=== PATIENT | male | born 1960 | race Caucasian/White ===

== ENCOUNTER 2018-03-09 10:59 | Inpatient (IN) | payer BC ==
[~2018-03-09] VITALS: Ht 170.2 cm; Wt 62.6 kg
[2018-03-09 11:43] VITALS: Ht 170.2 cm; Wt 62.6 kg
[2018-03-09 12:50] LABS: PLATELET COUNT 206 x10^3mcL (130-400)
[2018-03-09 12:53] LABS: UA SPECIFIC GRAVITY <=1.005 (1.005-1.035); microscopic required? YES; urine erythrocyte 2+ (NEGATIVE)
[2018-03-09 13:04] LABS: BILIRUBIN TOTAL 0.48 mg/dL (0.20-1.00); CALCIUM 9.1 mg/dL (8.5-10.1); CARBON DIOXIDE 18.1 mmol/L (21-32)
[2018-03-09 13:07] LABS: ALBUMIN 2.9 g/dL (3.4-5.0); TOTAL PROTEIN, SERUM 9.5 g/dL (6.4-8.2)
[2018-03-09 13:08] LABS: CREATININE SERUM 4.7 mg/dL (0.7-1.3)
[2018-03-09 14:32] LABS: BAND NEUTROPHIL 18 % (0-10); BASOPHIL 0 % (0-2); MONOCYTE 6 % (0-7); SEGMENTED NEUTROPHILS 73 % (37-75)
[2018-03-09 14:33] LABS: PLATELET MORPHOLOGY PLATELETS NORMAL; rbc morphology (normal/abnorm) ABNORMAL (NORMAL); tear drop cell (dacryocyte) 1+
[2018-03-09 15:26] LABS: FREE T4 1.01 ng/dL (0.76-1.46); FREE THYROXINE INDEX 1.9 ug/dL (1.4-4.5)
[2018-03-09 15:30] LABS: T3 TOTAL 0.26 ng/mL
[2018-03-09 15:47] VITALS: BP 138/89
[2018-03-09 16:44] LABS: CALCIUM 7.9 mg/dL (8.5-10.1); CARBON DIOXIDE 14.5 mmol/L (21-32); MAGNESIUM 2.3 mg/dL (1.8-2.4); PHOSPHOROUS 6.2 mg/dL (2.5-4.9); POTASSIUM SERUM 3.9 mmol/L (3.5-5.1)
[2018-03-09 16:48] LABS: CREATININE SERUM 4.5 mg/dL (0.7-1.3)
[2018-03-09 19:23] VITALS: BP 138/80
[2018-03-09 20:29] LABS: CALCIUM 8.1 mg/dL (8.5-10.1); CARBON DIOXIDE 17.8 mmol/L (21-32); CREATININE SERUM 3.7 mg/dL (0.7-1.3); MAGNESIUM 2.2 mg/dL (1.8-2.4); PHOSPHOROUS 4.7 mg/dL (2.5-4.9); POTASSIUM SERUM 4.1 mmol/L (3.5-5.1)
[2018-03-10] VITALS (12 sets, daily range): BP systolic 114–137; BP diastolic 67–84
[2018-03-10 00:57] LABS: CALCIUM 8.3 mg/dL (8.5-10.1); CARBON DIOXIDE 18.1 mmol/L (21-32); CREATININE SERUM 3.6 mg/dL (0.7-1.3); MAGNESIUM 2.2 mg/dL (1.8-2.4); PHOSPHOROUS 4.5 mg/dL (2.5-4.9); POTASSIUM SERUM 4.2 mmol/L (3.5-5.1)
[2018-03-10 05:43] LABS: PLATELET COUNT 196 x10^3mcL (130-400); RED CELL DISTRIBUTION WIDTH 14.3 % (11.5-14.5)
[2018-03-10 06:00] LABS: CALCIUM 7.5 mg/dL (8.5-10.1); CARBON DIOXIDE 15.3 mmol/L (21-32); CREATININE SERUM 3.4 mg/dL (0.7-1.3); MAGNESIUM 1.9 mg/dL (1.8-2.4); PHOSPHOROUS 3.6 mg/dL (2.5-4.9); POTASSIUM SERUM 3.4 mmol/L (3.5-5.1)
[2018-03-10 06:26] LABS: ATYPICAL LYMPH 1 %; BAND NEUTROPHIL 2 % (0-10); MONOCYTE 4 % (0-7); SEGMENTED NEUTROPHILS 85 % (37-75)
[2018-03-10 06:32] LABS: PLATELET MORPHOLOGY LARGE PLATELET SEEN; rbc morphology (normal/abnorm) NORMAL (NORMAL)
[2018-03-11 04:44] VITALS: BP 135/87
[2018-03-11 06:56] LABS: PLATELET COUNT 203 x10^3mcL (130-400); RED CELL DISTRIBUTION WIDTH 14.3 % (11.5-14.5)
[2018-03-11 07:10] LABS: BILIRUBIN TOTAL 0.36 mg/dL (0.20-1.00); CALCIUM 8.2 mg/dL (8.5-10.1); CARBON DIOXIDE 19.5 mmol/L (21-32); MAGNESIUM 1.8 mg/dL (1.8-2.4); PHOSPHOROUS 3.4 mg/dL (2.5-4.9); POTASSIUM SERUM 4.2 mmol/L (3.5-5.1); TOTAL PROTEIN, SERUM 6.8 g/dL (6.4-8.2)
[2018-03-11 07:13] LABS: ALBUMIN 1.7 g/dL (3.4-5.0)
[2018-03-11 09:56] VITALS: BP 117/77
[2018-03-11 12:40] LABS: BAND NEUTROPHIL 21 % (0-10); MONOCYTE 5 % (0-7); SEGMENTED NEUTROPHILS 66 % (37-75); rbc morphology (normal/abnorm) NORMAL (NORMAL)
[2018-03-11 12:41] LABS: PLATELET MORPHOLOGY PLATELETS NORMAL
[2018-03-11 16:28] VITALS: BP 123/78
[2018-03-11 21:01] VITALS: BP 115/76
[2018-03-12 05:56] VITALS: BP 129/81
[2018-03-12 06:52] LABS: CALCIUM 7.9 mg/dL (8.5-10.1); CARBON DIOXIDE 21.1 mmol/L (21-32); CREATININE SERUM 2.8 mg/dL (0.7-1.3); POTASSIUM SERUM 3.6 mmol/L (3.5-5.1)
[2018-03-12 08:34] LABS: BASOPHIL % 0.1 % (0-2); PLATELET COUNT 239 x10^3mcL (130-400)
[2018-03-12 08:47] LABS: RED CELL DISTRIBUTION WIDTH 14.8 % (11.5-14.5)
[2018-03-12 10:05] VITALS: BP 114/70
[2018-03-12 16:05] LABS: calcium (part of PTHIC) 8.1 mg/dL (8.7-10.2)
[2018-03-12 16:48] VITALS: BP 124/78
[2018-03-12 20:00] VITALS: BP 126/79
[2018-03-13 05:38] VITALS: BP 116/75
[2018-03-13 06:14] LABS: PLATELET COUNT 303 x10^3mcL (130-400)
[2018-03-13 06:26] LABS: CALCIUM 7.7 mg/dL (8.5-10.1); CARBON DIOXIDE 19.4 mmol/L (21-32); CREATININE SERUM 2.7 mg/dL (0.7-1.3)
[2018-03-13 06:31] LABS: POTASSIUM SERUM 2.6 mmol/L (3.5-5.1)
[2018-03-13 06:47] LABS: RED CELL DISTRIBUTION WIDTH 14.9 % (11.5-14.5)
[2018-03-13 08:55] LABS: BAND NEUTROPHIL 7 % (0-10); BASOPHIL 0 % (0-2); MONOCYTE 4 % (0-7); SEGMENTED NEUTROPHILS 88 % (37-75)
[2018-03-13 08:56] LABS: PLATELET MORPHOLOGY PLATELETS DECREASED; rbc morphology (normal/abnorm) ABNORMAL (NORMAL)
[2018-03-13 08:57] VITALS: BP 107/71
[2018-03-13 17:17] VITALS: BP 118/75
[2018-03-13 20:22] VITALS: BP 108/71
[2018-03-14 05:12] VITALS: BP 114/72
[2018-03-14 07:11] LABS: PLATELET COUNT 345 x10^3mcL (130-400)
[2018-03-14 07:13] LABS: CALCIUM 7.5 mg/dL (8.5-10.1); CARBON DIOXIDE 20.8 mmol/L (21-32); CREATININE SERUM 2.4 mg/dL (0.7-1.3); MAGNESIUM 1.4 mg/dL (1.8-2.4); POTASSIUM SERUM 3.5 mmol/L (3.5-5.1)
[2018-03-14 07:20] LABS: RED CELL DISTRIBUTION WIDTH 14.9 % (11.5-14.5)
[2018-03-14 08:50] VITALS: BP 111/71
[2018-03-14 10:51] LABS: BAND NEUTROPHIL 0 % (0-10); BASOPHIL 0 % (0-2); MONOCYTE 5 % (0-7); SEGMENTED NEUTROPHILS 87 % (37-75)
[2018-03-14 10:52] LABS: PLATELET MORPHOLOGY PLATELETS NORMAL; rbc morphology (normal/abnorm) ABNORMAL (NORMAL)
[2018-03-14 17:17] VITALS: BP 124/75
[2018-03-14 20:59] VITALS: BP 130/83
[2018-03-15 05:44] VITALS: BP 121/67
[2018-03-15 06:06] LABS: RED CELL DISTRIBUTION WIDTH 14.5 % (11.5-14.5)
[2018-03-15 06:30] LABS: CALCIUM 7.5 mg/dL (8.5-10.1); CARBON DIOXIDE 18.2 mmol/L (21-32); CREATININE SERUM 2.1 mg/dL (0.7-1.3); POTASSIUM SERUM 3.3 mmol/L (3.5-5.1)
[2018-03-15 06:41] LABS: PLATELET COUNT 401 x10^3mcL (130-400)
[2018-03-15 09:38] VITALS: BP 129/79
[2018-03-15 09:59] LABS: BAND NEUTROPHIL 12 % (0-10); BASOPHIL 0 % (0-2); MONOCYTE 5 % (0-7); SEGMENTED NEUTROPHILS 74 % (37-75); rbc morphology (normal/abnorm) ABNORMAL (NORMAL)
[2018-03-15 10:00] LABS: PLATELET MORPHOLOGY PLATELETS INCREASED
[2018-03-15 16:33] VITALS: BP 136/77
[2018-03-15 20:06] VITALS: BP 135/83
[2018-03-16 05:23] VITALS: BP 131/76
[2018-03-16 06:17] LABS: CALCIUM 7.3 mg/dL (8.5-10.1); CREATININE SERUM 1.9 mg/dL (0.7-1.3); MAGNESIUM 1.6 mg/dL (1.8-2.4); POTASSIUM SERUM 3.3 mmol/L (3.5-5.1)
[2018-03-16 07:04] LABS: PLATELET COUNT 457 x10^3mcL (130-400); RED CELL DISTRIBUTION WIDTH 14.6 % (11.5-14.5)
[2018-03-16 09:51] VITALS: BP 118/73
[2018-03-16 13:03] LABS: BAND NEUTROPHIL 11 % (0-10); MONOCYTE 4 % (0-7); SEGMENTED NEUTROPHILS 72 % (37-75)
[2018-03-16 13:04] LABS: rbc morphology (normal/abnorm) ABNORMAL (NORMAL); tear drop cell (dacryocyte) 1+
[2018-03-16 13:05] LABS: PLATELET MORPHOLOGY PLATELETS INCREASED
[2018-03-16 16:38] VITALS: BP 132/66
[2018-03-16 20:25] VITALS: BP 124/78
[2018-03-17 05:40] VITALS: BP 122/76
[2018-03-17 06:38] LABS: CALCIUM 7.2 mg/dL (8.5-10.1); CARBON DIOXIDE 23.1 mmol/L (21-32); CREATININE SERUM 1.9 mg/dL (0.7-1.3); POTASSIUM SERUM 3.3 mmol/L (3.5-5.1)
[2018-03-17 07:14] LABS: BASOPHIL % 0.2 % (0-2); RED CELL DISTRIBUTION WIDTH 14.3 % (11.5-14.5)
[2018-03-17 07:16] LABS: PLATELET COUNT 488 x10^3mcL (130-400)
[2018-03-17 09:39] VITALS: BP 126/78
[2018-03-17 16:14] VITALS: BP 135/77
[2018-03-17 20:59] VITALS: BP 127/77
[2018-03-18 05:17] VITALS: BP 127/79
[2018-03-18 06:20] LABS: BASOPHIL % 0.5 % (0-2); RED CELL DISTRIBUTION WIDTH 13.8 % (11.5-14.5)
[2018-03-18 06:34] LABS: PLATELET COUNT 534 x10^3mcL (130-400)
[2018-03-18 06:41] LABS: CALCIUM 7.1 mg/dL (8.5-10.1); CARBON DIOXIDE 20.4 mmol/L (21-32); CREATININE SERUM 1.8 mg/dL (0.7-1.3); POTASSIUM SERUM 3.3 mmol/L (3.5-5.1)
[2018-03-18 09:41] VITALS: BP 135/82
[2018-03-18 12:45] VITALS: BP 146/88
[2018-03-18 17:02] VITALS: BP 142/88
[2018-03-18 20:46] VITALS: BP 125/82
[2018-03-19 05:16] VITALS: BP 120/77
[2018-03-19 07:19] LABS: BASOPHIL % 0.3 % (0-2); RED CELL DISTRIBUTION WIDTH 14.2 % (11.5-14.5)
[2018-03-19 07:30] LABS: PLATELET COUNT 552 x10^3mcL (130-400)
[2018-03-19 07:32] LABS: CALCIUM 7.5 mg/dL (8.5-10.1); CARBON DIOXIDE 20.2 mmol/L (21-32); CREATININE SERUM 1.9 mg/dL (0.7-1.3); MAGNESIUM 1.9 mg/dL (1.8-2.4); POTASSIUM SERUM 3.9 mmol/L (3.5-5.1)
[2018-03-19 08:57] VITALS: BP 119/72
[2018-03-19 17:15] VITALS: BP 130/80
[2018-03-19 20:24] VITALS: BP 129/77
[2018-03-20 05:33] VITALS: BP 112/71
[2018-03-20 09:05] VITALS: BP 133/78
[2018-03-20 16:50] VITALS: BP 146/89
[2018-03-20 21:05] VITALS: BP 147/90
[2018-03-21 05:12] VITALS: BP 130/83
[2018-03-21 08:46] VITALS: BP 126/77
[2018-03-21] MEDS ORDERED: LINEZOLID600 MG PO (10:24)
[2018-03-21 13:20] VITALS: BP 126/77
[2018-03-21] MEDS ORDERED: METFORMIN850 M1 PO (15:47)
[2018-03-21] MEDS ORDERED: LEVEMIR100 U/M1 SC (15:47)
== END 2018-03-21 16:13 | disposition home or self-care (01) | DRG 871 ==
LOC: ED 10:59 → IC 14:15 → MU 14:15 → IC 15:30 → MU 03-10 14:10
PROVIDERS: Emergency Medicine; Family Medicine; Internal Medicine
DX: A41.81 Sepsis due to Enterococcus (principal); E11.00 Type 2 diabetes mellitus with hyperosmolarity without nonketotic hyperglycemic-hyperosmolar coma (NKHHC); J18.9 Pneumonia, unspecified organism; N17.9 Acute kidney failure, unspecified; E87.1 Hypo-osmolality and hyponatremia; E87.2 Acidosis; N13.6 Pyonephrosis; E78.00 Pure hypercholesterolemia, unspecified; I12.9 Hypertensive chronic kidney disease with stage 1 through stage 4 chronic kidney disease, or unspecified chronic kidney disease; B95.2 Enterococcus as the cause of diseases classified elsewhere; E87.6 Hypokalemia; E78.5 Hyperlipidemia, unspecified; F10.10 Alcohol abuse, uncomplicated; E86.0 Dehydration; Y90.0 Blood alcohol level of less than 20 mg/100 ml; E11.42 Type 2 diabetes mellitus with diabetic polyneuropathy; E11.22 Type 2 diabetes mellitus with diabetic chronic kidney disease; N18.9 Chronic kidney disease, unspecified; E11.65 Type 2 diabetes mellitus with hyperglycemia; Z91.19 Patient's noncompliance with other medical treatment and regimen; Z68.22 Body mass index [BMI] 22.0-22.9, adult; Z79.84 Long term (current) use of oral hypoglycemic drugs; Z90.49 Acquired absence of other specified parts of digestive tract; Z82.49 Family history of ischemic heart disease and other diseases of the circulatory system
CPT/HCPCS: 82962; 84439; J0290; J0696; J1580; J1815; J2543; J3370; J3475; J3480; J3490; J7030; J7050; Q0092